=== PATIENT | female | born 1990 | race Caucasian/White ===

== ENCOUNTER 2016-08-28 12:34 | Emergency (ER) | payer MEDICAID ==
[2016-08-28] MEDS ORDERED: Bicillin LA 1.2 MILLION UNITS/2 ML SYRINGE ONE (13:24)
[2016-08-28] MEDS ORDERED: Ibuprofen 600 MG TAB ONE (13:30)
== END 2016-08-28 13:52 | disposition home or self-care (01) ==
LOC: MADERS 12:34
DX: J03.00 Acute streptococcal tonsillitis, unspecified (principal); F17.210 Nicotine dependence, cigarettes, uncomplicated
CPT/HCPCS: 87430; 96372; J0561

== ENCOUNTER 2017-09-13 20:05 | Emergency (ER) | payer MEDICAID, OTHER ==
[~2017-09-13 20:05] MED LIST: Sodium Chloride 0.9% 1,000 ML BAG ONE
[2017-09-13 20:32] LABS: #Basophils 0.1 thou/uL (0.0-0.2); #Eosinphils 0.3 thou/uL (0.0-0.7); #Lymphocytes 3.7 thou/uL (1.20-3.40); #Neutrophils 9.5 thou/uL (1.40-6.50); %Basophils 0.9 % (0.0-1.0); %Eosinophils 2.1 % (0.0-10.0); %Lymphocytes 25.3 % (21.0-51.0); %Monocytes 6.6 % (0.0-10.0); %Neutrophils 65.2 % (42.0-75.0); Hemoglobin 9.8 g/dL (12.0-16.0); Mean Corpuscular HGB CONC 33.6 g/dL (32.0-36.0); Mean Corpuscular Hemoglobin 25.4 pg (27.0-31.0); Mean Corpuscular Volume 75.5 fL (78.0-98.0); Mean Platelet Volume 6.7 fL (7.4-10.4); Platelet Count 469 thou/uL (130-400); RBC Distribution Width 15.2 % (11.5-14.5); Red Blood Cell (RBC) Count 3.87 mill/uL (4.20-5.40); White Blood Cell (WBC) Count 14.6 thou/uL (4.8-10.8)
[2017-09-13 20:38] LABS: PTT 33.7 SEC (22.9-36.1); Prothrombin Time 13.7 SEC (12.0-14.7)
[2017-09-13 20:46] LABS: Anion Gap 16 mmol/L (10-20); BUN (Urea Nitrogen) 14 mg/dL (7.0-18.7); Calc. Creatinine Clearance 0 mL/min (70-130); Calcium 9.2 mg/dL (7.8-10.44); Carbon Dioxide 22 mmol/L (22-29); Chloride 108 mmol/L (98-107); Estimated GFR-MDRD Greater than 90; Glucose 98 mg/dL (70-105); Sodium 142 mmol/L (136-145)
[2017-09-13 21:05] LABS: BHCG - Serum POSITIVE (NEGATIVE); Pregs Control Background? CLEAR/WHITE (CLR/WHITE); Pregs Control Bar Appear? YES (CONTROL BAR)
== END 2017-09-13 21:13 | disposition short-term general hospital (02) ==
LOC: MADERS 20:05
DX: N93.9 Abnormal uterine and vaginal bleeding, unspecified (principal); F17.210 Nicotine dependence, cigarettes, uncomplicated
CPT/HCPCS: 80048; 84703; 85025; 85610; 85730; 86850; 86900; 86901; 96360; J7050; J7620

== ENCOUNTER 2018-09-23 20:45 | Emergency (ER) | payer OTHER ==
[2018-09-23] MEDS ORDERED: Ondansetron PF 4 MG/2 ML Vial ONE (21:49)
[2018-09-23] MEDS ORDERED: Sodium Chloride 0.9% 1,000 ML ONE (21:49)
[2018-09-23 22:01] LABS: Band 3 % (5-11); Elliptocytes SLIGHT = 2-5 cells (100X) (0-1/hpf); Eosinophils 1 % (0-10); Hemoglobin 8.9 g/dL (12.0-16.0); Hypochromia MODERATE=16-30 cells (100X) (0-5/hpf); Lymphocytes 10 % (21-51); MDiff Complete? YES; Mean Corpuscular HGB CONC 30.3 g/dL (32.0-36.0); Mean Corpuscular Hemoglobin 20.5 pg (27.0-31.0); Mean Corpuscular Volume 67.8 fL (78.0-98.0); Mean Platelet Volume 7.1 fL (7.4-10.4); Microcytosis SLIGHT = 6-15 cells (100X) (0-5/hpf); Monocytes 7 % (0-10); Neutrophil 79 % (42-75); Platelet Count 370 thou/uL (130-400); Platelet Morphology Comment Appears Adequate; RBC Distribution Width 14.8 % (11.5-14.5); RBC Morphology Abnormal; Red Blood Cell (RBC) Count 4.32 mill/uL (4.20-5.40); White Blood Cell (WBC) Count 12.1 thou/uL (4.8-10.8)
[2018-09-23 22:06] LABS: ALT (SGPT) 12 U/L (8-55); AST (SGOT) 20 U/L (5-34); Albumin 3.5 g/dL (3.5-5.0); Alkaline Phosphatase 184 U/L (40-150); Anion Gap 16 mmol/L (10-20); BUN (Urea Nitrogen) 7 mg/dL (7.0-18.7); Bilirubin, Total 0.3 mg/dL (0.2-1.2); Calc. Creatinine Clearance 0 mL/min (70-130); Calcium 9.5 mg/dL (7.8-10.44); Carbon Dioxide 20 mmol/L (22-29); Chloride 105 mmol/L (98-107); Estimated GFR-MDRD Greater than 90; Glucose 79 mg/dL (70-105); Potassium 3.7 mmol/L (3.5-5.1); Protein, Total 7.5 g/dL (6.0-8.3); Sodium 137 mmol/L (136-145)
[2018-09-23 22:39] LABS: Bilirubin Negative (Negative); Blood, Urine Negative (Negative); Clarity Slightly Cloudy (Clear); Glucose, Urine (Dipstick) Negative (Negative); Leukocyte Trace (Negative); Nitrite Negative (Negative); Protein, Urine (Dipstick) Negative (Neg-Trace); Urobilinogen 0.2 mg/dL (Less than 2)
[2018-09-23 22:41] LABS: RBC/HPF 0-3 HPF (0-3)
[2018-09-23 22:42] LABS: Bacteria/HPF None Seen HPF (None Seen)
[2018-09-23 22:52] LABS: Amphetamine Not Detected (NotDetected); Barbiturates Screen Not Detected (NotDetected); Benzodiazepine Screen Not Detected (NotDetected); Cocaine Metabolite Screen Not Detected (NotDetected); Medtox Control Line Valid? VALID (VALID); Methadone Not Detected (NotDetected); Methamphetamine Detected (NotDetected); Opiate Screen Not Detected (NotDetected); Oxycodone Screen Not Detected (NotDetected); Phencyclidine (PCP) Not Detected (NotDetected); THC/Cannabinoid Screen Not Detected (NotDetected); Tricyclic Screen Not Detected (NotDetected)
== END 2018-09-24 00:45 | disposition short-term general hospital (02) ==
LOC: MADERS 20:45
DX: O99.613 Diseases of the digestive system complicating pregnancy, third trimester (principal); K52.9 Noninfective gastroenteritis and colitis, unspecified; O99.013 Anemia complicating pregnancy, third trimester; O99.323 Drug use complicating pregnancy, third trimester; F15.10 Other stimulant abuse, uncomplicated; O99.333 Smoking (tobacco) complicating pregnancy, third trimester; F17.210 Nicotine dependence, cigarettes, uncomplicated; Z71.6 Tobacco abuse counseling; Z3A.35 35 weeks gestation of pregnancy
CPT/HCPCS: 80053; 80306; 81003; 81015; 85025; 96361; 96374; J2405; J7050

== ENCOUNTER 2019-03-15 11:56 | Emergency (ER) | payer OTHER | END 2019-03-15 12:40 | disposition home or self-care (01) | LOC: MADERS 11:56 | DX: J00 Acute nasopharyngitis [common cold] (principal); F17.210 Nicotine dependence, cigarettes, uncomplicated | CPT/HCPCS: 99283 ==

== ENCOUNTER 2022-01-04 10:35 | Emergency (ER) | payer OTHER ==
[2022-01-04] MEDS ORDERED: Dexamethasone 10 MG/ML VIAL ONE (13:57)
[2022-01-04] MEDS ORDERED: Ketorolac Tromethamine 60 MG/2 ML VIAL ONE (13:57)
== END 2022-01-04 14:29 | disposition home or self-care (01) ==
LOC: MADERS 10:35
DX: J06.9 Acute upper respiratory infection, unspecified (principal); Z20.822 Contact with and (suspected) exposure to COVID-19; Z87.891 Personal history of nicotine dependence
CPT/HCPCS: 71045; 87081; 87430; 87804; 96372; J1100; J1885; U0003; U0005

== ENCOUNTER 2022-02-03 10:42 | Emergency (ER) | payer OTHER ==
[2022-02-03] MEDS ORDERED: Dexamethasone 10 MG/ML VIAL ONE (11:15)
== END 2022-02-03 12:16 | disposition home or self-care (01) ==
LOC: MADERS 10:42
DX: J10.1 Influenza due to other identified influenza virus with other respiratory manifestations (principal); J40 Bronchitis, not specified as acute or chronic; F17.210 Nicotine dependence, cigarettes, uncomplicated; Z20.822 Contact with and (suspected) exposure to COVID-19
CPT/HCPCS: 71045; 87081; 87430; 87804; 87807; 96372; J1100; U0003; U0005

== ENCOUNTER 2022-07-31 13:27 | Emergency (ER) | payer OTHER ==
[2022-07-31] MEDS ORDERED: Acetaminophen 325 MG TAB ONE (14:08)
[2022-07-31] MEDS ORDERED: Ibuprofen 800 MG TAB ONE (14:08)
[2022-07-31 14:20] LABS: Pregnancy Test - Urine (BHCG) Negative (Negative)
[2022-07-31 14:21] LABS: Pregu Control Background? CLEAR/WHITE (CLR/WHITE); Pregu Control Bar Appear? YES (CONTROL BAR); Specific Gravity 1.028 (1.002-1.036)
== END 2022-07-31 14:42 | disposition home or self-care (01) ==
LOC: MADERS 13:27
DX: S63.502A Unspecified sprain of left wrist, initial encounter (principal); X58.XXXA Exposure to other specified factors, initial encounter; Z87.891 Personal history of nicotine dependence
CPT/HCPCS: 81025

== ENCOUNTER 2022-10-01 23:13 | Emergency (ER) | payer OTHER ==
[2022-10-02] MEDS ORDERED: HYDROcodone/Acetaminophen 5/325 mg Tablet ONE (00:15)
[2022-10-02] MEDS ORDERED: AMOXicillin 250 MG CAP ONE (00:16)
== END 2022-10-02 00:28 | disposition home or self-care (01) ==
LOC: MADERS 23:13
DX: K04.7 Periapical abscess without sinus (principal); F17.210 Nicotine dependence, cigarettes, uncomplicated
CPT/HCPCS: 99282

== ENCOUNTER 2023-10-06 17:31 | Emergency (ER) | payer OTHER ==
[2023-10-06 18:38] LABS: Influenza A by NAA Not Detected (NotDetected); Influenza B by NAA Not Detected (NotDetected); SARS-CoV-2 NAA Rapid Test Not Detected (NotDetected)
[2023-10-06] MEDS ORDERED: Dexamethasone 10 MG/ML VIAL ONE (18:41)
== END 2023-10-06 18:48 | disposition home or self-care (01) ==
LOC: MADERS 17:31
DX: J06.9 Acute upper respiratory infection, unspecified (principal); F17.210 Nicotine dependence, cigarettes, uncomplicated
CPT/HCPCS: 87081; 87430; 96372; 99283; J1100

== ENCOUNTER 2024-02-18 01:04 | Emergency (ER) | payer OTHER ==
[2024-02-18] MEDS ORDERED: Amoxicillin/Potassium Clav 875 MG TAB ONE (01:24)
[2024-02-18] MEDS ORDERED: Lidocaine 1% w/Epinephrine 1:100K 20 ML VIAL ONE (01:25)
[2024-02-18] MEDS ORDERED: Bupivacaine HCl 0.5%/Epinephrine 1:200,000/PF 30 ml Vial ONE (01:25)
== END 2024-02-18 02:27 | disposition home or self-care (01) ==
LOC: MADERS 01:04
DX: K08.89 Other specified disorders of teeth and supporting structures (principal); F17.210 Nicotine dependence, cigarettes, uncomplicated
CPT/HCPCS: 64400; 99282

== ENCOUNTER 2025-01-29 15:18 | Emergency (ER) | payer OTHER, SELFPAY | END 2025-01-29 16:56 | disposition home or self-care (01) | LOC: MADERS 15:18 | DX: J06.9 Acute upper respiratory infection, unspecified (principal); F17.210 Nicotine dependence, cigarettes, uncomplicated | CPT/HCPCS: 87428; 99284 ==